=== PATIENT | female | born 1985 | race Two or more races ===

== ENCOUNTER 2023-07-16 13:15 | Emergency (ER) | payer MEDICAID ==
[~2023-07-16] VITALS: Ht 154.9 cm; Wt 72.6 kg
[2023-07-16] MEDS ORDERED: IBUP-1955 PO (15:39)
[2023-07-16] MEDS ORDERED: LIDO30AD10 TP (15:39)
[2023-07-16] MEDS ORDERED: CYCL5TAB PO (15:39)
[2023-07-16 17:29] VITALS: BP 139/80; TEMP 98; O2SAT 98
== END 2023-07-16 17:30 | disposition home or self-care (01) ==
LOC: ER 13:31
DX: M54.6 Pain in thoracic spine (principal); V43.52XA Car driver injured in collision with other type car in traffic accident, initial encounter; Y93.89 Activity, other specified; Y92.89 Other specified places as the place of occurrence of the external cause; Y99.8 Other external cause status
CPT/HCPCS: 71045-TC